=== PATIENT | male | born 1995 | race Two or more races ===

== ENCOUNTER 2017-04-04 09:32 | Emergency (ER) | payer SELFPAY ==
--- NOTE | 2017-04-04 11:22 | UC ---
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 Patient speaks english and a wood stock blank handler was utilized. It was a very difficult history. Patient states the pain is constant however gets worse at times. At it's worst it is an 8/10 and travels to his back and neck. Currently it is about a 5. It is worse when pushing on his sternum. Points to mid sternal chest pain. Admits to having an episode of trouble breathing yesterday that improved. Admits to sometimes having chest pain worsen with exertion. Patient admits to fever/chills and having "goosebumps" 3 days ago. States he also had a rash about 4 days ago that he took Benedryl for and it had improved. He states he still has a rash somewhat but it is much better. Rash was on chest and back, no where else. Patient also admits to nasal congestion and runny nose, cough and sore throat only when he coughed. States these symptoms have all improved and he no longer has them. Today he is just complaining of the chest pain and feeling fatigued, and experiencing loss of appetite. He does eat and drink however does not have the desire. Denies burning sensation, abdominal pain and vomiting. Patient denies cigarette use, and PMHx. Admits to occasional use of alcohol, beer here and there. Denies family history. Has not been immunized. - History of Current Complaint Chief Complaint: UCChestPain Stated Complaint: COUGHING, CHEST CONGESTION Time Seen by Provider: 04/04/17 10:17 Hx Obtained From: Patient, Family/Lockstitch Hemmer, Heel Breaster - english Onset/Duration: Sudden Onset, Lasting Days, Still Present Timing: Constant - Allergies/Home Medications Allergies/Adverse Reactions: Allergies Allergy/AdvReac Type Severity Reaction Status Date / Time No Known Allergies Allergy Verified 06/01/16 09:52 PMH/Surg Hx/FS Hx/Imm Hx - Surgical History Surgical History: None - Family History Known Family History: Positive: None - Pt denies any diabetes, strokes, or glaucoma in his family - Social History Alcohol Use: Weekly Alcohol Amount: 3-4x week , beer Substance Use Type: None Smoking Status (MU): Current Some Day Smoker Type: Cigarettes Physical Exam Vital Signs: Initial Vital Signs Pulse 96 04/04/17 09:48 Resp 16 05/31/17 09:48 Pulse Ox 97 04/04/17 09:48 UC Diagnostic Evaluation - Laboratory O2 Sat by Pulse Oximetry: 97 - Radiology Xray Interpretation: Positive (See Comments) - LEFT LOWER LUNG CONSOLIDATION. RECOMMEND FOLLOW-UP UNTIL RESOLUTION TO EXCLUDE UNDERLYING Radiology Interpretation Completed By: Radiologist - EKG Cardiac Rate: NL Cardiac Rhythm: Sinus: Normal Ectopy: None ST Segment: Non-Specific - ST changes, <1mm elevation in lateral leads, LVH
--- NOTE | 2017-04-04 11:50 | RAD ---
HISTORY: Chest pain COMPARISONS: None VIEWS: 2: Frontal dual-energy and lateral views of the chest. FINDINGS: CARDIOMEDIASTINAL SILHOUETTE: The cardiomediastinal silhouette is normal. BRAN: The bran are normal. PLEURA: The costophrenic angles are sharp. No pleural abnormalities are noted. LUNG PARENCHYMA: There is confluent alveolar opacification of the left lower lung. ABDOMEN: The upper abdomen is clear. There is no subphrenic gas. BONES AND SOFT TISSUES: No bone or soft tissue abnormalities are noted. OTHER: None. IMPRESSION: LEFT LOWER LUNG CONSOLIDATION. RECOMMEND FOLLOW-UP UNTIL RESOLUTION TO EXCLUDE UNDERLYING PULMONARY PARENCHYMAL PATHOLOGY.
[2017-04-04] MEDS ORDERED: Ibuprofen TAB* 600 MG PO ONE (11:51)
[2017-04-04 12:15] VITALS: BP 112/68
--- NOTE | 2017-04-04 12:21 | UC ---
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 Patient speaks italian and a chairman and ceo was utilized. It was a very difficult history. Patient states the pain is constant however gets worse at times. At it's worst it is an 8/10 and travels to his back and neck. Currently it is about a 5. It is worse when pushing on his sternum. Points to mid sternal chest pain, unable to admit to if pain is worse/better with position. Admits to having an episode of trouble breathing yesterday that improved. Admits to sometimes having chest pain worsen with exertion. Patient admits to fever/ chills and having "goosebumps" 3 days ago. States he also had a rash about 4 days ago that he took Benedryl for and it had improved. He states he still has a rash somewhat but it is much better. Rash was on chest and back, no where else. Patient also admits to nasal congestion and runny nose, cough and sore throat only when he coughed. Stated "the flu". States these symptoms have all improved and he no longer has them. Today he is just complaining of the chest pain and feeling fatigued, and experiencing loss of appetite. He does eat and drink however does not have the desire. Denies burning sensation, abdominal pain and vomiting. Patient denies cigarette use, and PMHx. Admits to occasional use of alcohol, beer here and there. Denies family history. Has not been immunized. 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 - History of Current Complaint Chief Complaint: UCChestPain Stated Complaint: COUGHING, CHEST CONGESTION Time Seen by Provider: 04/04/17 10:17 Hx Obtained From: Patient, Family/Night Coordinator, Legal Cashier Onset/Duration: Sudden Onset, Lasting Days - 4, Still Present, Worse Since Initial Severity: Moderate Current Severity: Mild Pain Intensity: 5 Chest Pain Location: Mid Sternal - radiates to neck and back Character: Dull/Aching - unable to really describe, Sharp/Stabbing Aggravating: Exertion, Nothing - unable to describe Alleviating: Rest, OTC Meds - red pills he does not know the name of that made pain feel somewhat better, Spontaneous Resolution Associated Signs & Symptoms: Positive: Chest Pain, SOB - "trouble breathing" yesterday that improved, Fever, Cough - has improved, Back Pain. Negative: Anxiety, Recent Stress, Numbness, Tingling, Weakness, Dizziness, Swelling, Hemoptysis, Abdominal Pain - Risk Factors Pulmonary Embolism Risk Factors: Negative Cardiac Risk Factors: Negative Atrial Fibrillation: Negative TAD Risk Factors: Negative - Allergy/Home Medications Allergies/Adverse Reactions: Allergies Allergy/AdvReac Type Severity Reaction Status Date / Time No Known Allergies Allergy Verified 06/01/16 09:52 PMH/Surg Hx/FS Hx/Imm Hx - Additional Past Medical History Additional PMH: denies all medical history, none. - Surgical History Surgical History: None - Family History Known Family History: Positive: None - Pt denies all - Social History Alcohol Use: Weekly Alcohol Amount: 3-4x week , beer Substance Use Type: None Smoking Status (MU): Former Smoker Type: Cigarettes - Immunization History Vaccination Up to Date: No Immunizations Comment: has not been immunized Review of Systems Constitutional: Fever, Chills, Fatigue Eyes: Negative ENT: Sore Throat, Nasal Discharge Respiratory: Shortness Of Breath, Cough Cardiovascular: Chest Pain Gastrointestinal: Negative, Other - loss of appetite Genitourinary: Negative Motor: Negative Neurovascular: Negative Musculoskeletal: Negative Neurological: Negative All Other Systems Reviewed And Are Negative: Yes Physical Exam Triage Information Reviewed: Yes Appearance: Well-Appearing, No Pain Distress, Well-Nourished Vital Signs: Initial Vital Signs Pulse 96 04/04/17 09:48 Resp 20 04/04/17 09:48 Pulse Ox 97 04/04/17 09:48 BP: 112/68 Temp: 99.7F Vital Signs Reviewed: Yes Eyes: Positive: Conjunctiva Clear - without signs of conjunctivities ENT: Positive: Normal ENT inspection, Hearing grossly normal, Pharyngeal erythema, TMs normal, Tonsillar swelling - minimal b/l, Other: - no koplick spots noted. Negative: Nasal congestion, Nasal drainage, Tonsillar exudate, Trismus, Muffled/hoarse voice Dental: Negative: Cervical Lymphadenopathy Neck: Positive: Supple, Nontender, No Lymphadenopathy Respiratory: Positive: Chest non-tender - ribs non-tender, Lungs clear, Normal breath sounds, No respiratory distress, No accessory muscle use. Negative: Crackles, Rhonchi, Stridor, Wheezing, Expiration, Inspiration, Plerual rub Cardiovascular: Positive: RRR, No Murmur - no audible murmur or pericardial friction rub noted, Brisk Capillary Refill, Tachycardia, Other: - reproducible chest pain. chest pain did not worsen/better with positional change, patient was unable to describe. Abdomen Description: Positive: Nontender, No Organomegaly, Soft. Negative: CVA Tenderness (R), CVA Tenderness (L), Distended, Guarding Bowel Sounds: Positive: Present Musculoskeletal: Positive: Strength Intact, ROM Intact, No Edema Neurological: Positive: Alert Skin Exam: Normal Skin: Positive: Other - no current rash noted, chest and back discoloration but on obvious rash at this time Diagnostics - EKG Cardiac Rate: NL Cardiac Rhythm: Sinus: Normal ST Segment: Non-Specific - ST changes, <1mm in anterolateral leads, mainly lateral leads, LVH - Assessment/Plan Course Of Treatment: after obtianing EKG and Chest x-ray it was decided patient needed a further evaluation at ED to rule out cardiopulmonary pathology such as pericarditis, rheumatic fever, DC, pneumonia, TB, measles etc due to complicated and difficult history. Given 600mg of ibuprofren while in office. EKG and Chest x-ray positive. Patient's pain had decreased prior to transfer. - Differential Diagnoses - Chest Pain Differential Diagnosis/HQI/PQRI: Acute DC, Angina, Chest Wall, Lower Respiratory Infection, Pulmonary Embolism, Other: - Differential Diagnoses - Hypertension Differential Diagnosis/HQI PQRI: AAA - Differential Diagnoses - Palpitations Differential Diagnosis/HQI/PQRI: Cardiomyopathy, Myocarditis, Pericarditis, Other - measels, rheumatic fever - Clinical Impression Provider Diagnoses: chest pain - Physician Notifications Discussed Patient Care With: Mariella FELIX Time Discussed With Above Provider: 12:10 Instructed by Provider To: Transfer - to ED Discharge - Discharge Plan Condition: Stable Disposition: TRANS HIGHER LVL OF CARE FAC Discharge Disposition Comment: transferred to [facility] [place] [facility] Referrals: No Primary Care Phys,NOPCP [Primary Care Provider] -
== END 2017-04-04 12:40 | disposition short-term general hospital (02) ==
LOC: UCEAST 09:32
DX: R07.89 Other chest pain (principal); R06.02 Shortness of breath; R21 Rash and other nonspecific skin eruption; R09.81 Nasal congestion; R05 Cough; J02.9 Acute pharyngitis, unspecified; Z87.891 Personal history of nicotine dependence
CPT/HCPCS: 71020; 93005; 99211; 99213; A9270-GY; G0463

== ENCOUNTER 2017-04-04 12:42 | Inpatient (IN) | payer SELFPAY ==
[2017-04-04 13:13] LABS: Hematocrit 43 % (42-52); Hemoglobin 14.4 g/dl (14.0-18.0); Mean Corpuscular HGB Conc 34 g/dl (31-36); Mean Corpuscular Hemoglobin 29 pg (27-31); Mean Corpuscular Volume 87 fL (80-94); Mean Platelet Volume 10 um3 (7.4-10.4); Red Blood Count 4.93 10^6/ul (4.0-5.4); Red Cell Distribution Width 13 % (10.5-15); White Blood Count 11.8 10^3/ul (3.5-10.8)
[2017-04-04] MEDS ORDERED: Aspirin Low Dose CHEW TAB* 81 MG PO ONE (13:16)
[2017-04-04 13:23] LABS: Albumin 3.8 g/dL (3.2-5.2); BUN/Creatinine Ratio 19.2 (8-20); C Reactive Protein 199.73 mg/L (< 5.00); Calcium 9.1 mg/dL (8.6-10.3); EGFR African American 172.8 (>60); EGFR Non-African American 134.4 (>60); Globulin 3.8 g/dL (2-4); Total Protein 7.6 g/dL (6.4-8.9)
[2017-04-04 13:32] LABS: Troponin I 0.21 ng/mL (<0.04)
--- NOTE | 2017-04-04 13:54 | RAD ---
HISTORY: Chest pain COMPARISONS: April 04, 2017 at 11:24 AM VIEWS: 2: Frontal dual-energy and lateral views of the chest. FINDINGS: CARDIOMEDIASTINAL SILHOUETTE: The cardiomediastinal silhouette is normal. BRAN: The bran are normal. PLEURA: The costophrenic angles are sharp. No pleural abnormalities are noted. LUNG PARENCHYMA: Again noted is confluent alveolar opacification of left lower lung field. This is stable from the previous examination ABDOMEN: The upper abdomen is clear. There is no subphrenic gas. BONES AND SOFT TISSUES: No bone or soft tissue abnormalities are noted. OTHER: None. IMPRESSION: STABLE LEFT LOWER LUNG CONSOLIDATION. AGAIN RECOMMEND FOLLOW-UP UNTIL RESOLUTION TO EXCLUDE UNDERLYING PULMONARY PARENCHYMAL PATHOLOGY
--- NOTE | 2017-04-04 16:43 | ECHO ---
Patient: RIO GONZALEZ [facility] Rec#: [id number] : 1995 Date: 04/04/2017 Age: 21y Height: 162.56 cm / 64.0 in Weight: 77.11 kg / 170.0 lbs Sex: M BSA: 1.83 Room#: 446 Admit Date#: 04/04/2017 Type: Inpatient Referring: Diana Garay DO Reading: Rachel Silva MD Senior Electrical Project Manager: Chinyere Neumann RD,RDMS Transthoracic Echocardiogram Indication: CP BP: 96/45 HR: 77 Rhythm: NSR Findings History: Smoker Technical Comments: The study quality is good. Completed 1620 Left Ventricle: The left ventricular chamber size is normal. There is no left ventricular hypertrophy. Left ventricular systolic function is at the lower limits of normal. The estimated ejection fraction is 45-50%. Normal left ventricular diastolic filling is observed. Left Atrium: The left atrial chamber size is normal. Right Ventricle: The right ventricular chamber size and systolic function are within normal limits. Right Atrium: The right atrial cavity size is normal. Aortic Valve: The aortic valve is trileaflet. There is a trace of aortic regurgitation. There is no evidence of aortic stenosis. Mitral Valve: The mitral valve leaflets appear normal. There is a trace of mitral regurgitation. There is no evidence of mitral stenosis. Tricuspid Valve: The tricuspid valve leaflets are normal. There is trace tricuspid regurgitation. Pulmonic Valve: There is a trace pulmonic regurgitation. Pericardium: There is no significant pericardial effusion. Aorta: The aortic root appears normal. There is no dilatation of the aortic arch. Pulmonary Artery: The main pulmonary artery appears normal. Venous: The inferior vena cava appears normal in size. There is an approximate 50% respiratory change in the inferior vena cava dimension. Conclusions The left ventricular chamber size is normal. Left ventricular systolic function is at the lower limits of normal. The estimated ejection fraction is 50%. The right ventricular chamber size and systolic function are within normal limits. There is no significant pericardial effusion. All valves appear structurally normal with normal function. There is a trace of aortic regurgitation. There is a trace of mitral regurgitation. There is trace tricuspid regurgitation. No prior echo to compare. Measurements Name Value Normal Range RVIDd (AP) 2D 2.3 cm (0.9 - 2.6) RVDdMajor (2D) 4.2 cm (2.2 - 4.4) RAd ISD 4CH 4.9 cm (3.4 - 4.9) RA (A4C)W 4.4 cm (2.9 - 4.6) IVSd (2D) 1 cm (0.6 - 1) LVPWd (2D) 1 cm (0.6 - 1) LVIDd (2D) 5.1 cm (3.6 - 5.4) LVIDs (2D) 3.5 cm - LV FS (2D) 32 % (25 - 45) Aortic Annulus 2.4 cm (1.4 - 2.6) Ao root diameter (2D) 3 cm (2.1 - 3.5) Ascending Ao 2.3 cm (2.1 - 3.4) Aortic arch 2.2 cm (1.8 - 3.4) LA dimension (AP) 2D 3.4 cm (2.3 - 3.8) LAd ISD 4CH 5.5 cm (2.9 - 5.3) LA ISD 4CH W 4.4 cm (2.5 - 4.5) Name Value Normal Range LA ESV SP 4CH (A/L) 56.36 ml - LA ESV SP 2CH (A/L) 45.36 ml - LA ESV BP (A/L) 52.91 ml - LA ESV BP (A/L) index 29 ml/m2 - LA ESV SP 4CH (MOD) 52.13 ml - LA ESV SP 2CH (MOD) 42.63 ml - Name Value Normal Range MV E-wave Vmax 0.7 m/sec - MV deceleration time 88.4 msec - MV A-wave Vmax 0.5 m/sec - MV E:A ratio 1.4 ratio - LV septal e' Vmax 0.11 m/sec - LV lateral e' Vmax 0.1 m/sec - LV E:e' septal ratio 6.4 ratio - LV E:e' lateral ratio 7 ratio - Name Value Normal Range AV Vmax 1.1 m/sec - AV VTI 22.4 cm - AV peak gradient 5 mmHg - AV mean gradient 3.1 mmHg - LVOT Vmax 0.8 m/sec - LVOT VTI 14.5 cm - LVOT peak gradient 2.6 mmHg - LVOT mean gradient 1.3 mmHg - SEE Vmax 1.1 m/sec - Name Value Normal Range RAP 8 mmHg - IVC diameter 1.3 cm - Name Value Normal Range PV Vmax 0.8 m/sec - PV peak gradient 2.6 mmHg -
[2017-04-04] MEDS ORDERED: Levofloxacin 750 MG IVPREMIX(* 750 MG/150 ML BAG IVPB ONE (17:53)
--- NOTE | 2017-04-04 19:39 | RAD ---
INDICATION: Left sided infiltrate COMPARISON: Chest x-ray April 04, 2017 TECHNIQUE: A noncontrast examination was ordered. Source images were obtained from the thoracic inlet to the hemidiaphragms. Coronal and sagittal reconstructed images were acquired. The visualized neck to include the thyroid appear normal. Chest wall: There are no acute abnormalities of the bony thorax or chest wall. There is no supraclavicular, infraclavicular, or axillary lymphadenopathy. Lungs : There is consolidative change in the lingular segment. There is also a small amount of consolidative change in the superior segment of the left lower lobe and in the left lung base. [place] dependent atelectasis present in the right lung base There are no endobronchial lesions. Cardiomediastinal structures: The heart is normal in size. There is no pericardial effusion. There is no evidence of aortic aneurysm or dissection. The pulmonary vessels appear normal. Evaluation for adenopathy is limited due to lack of intravenous contrast. There is left hilar, and aorta pulmonary window, and prevascular space adenopathy. This may be reactive but represents a nonspecific finding. Individual lymph nodes measure up to 2.5 cm The esophagus appears normal. Pleura : There are no pleural-based masses or effusions. Other: There may be splenomegaly. Only a portion of the spleen is imaged. IMPRESSION: NONCONTRAST IMAGING DEMONSTRATES LEFT-SIDED INFILTRATES WITH MEDIASTINAL LYMPHADENOPATHY. POSSIBLE SPLENOMEGALY. CONSIDER BOTH INFLAMMATORY AND NEOPLASTIC ETIOLOGIES.
--- NOTE | 2017-04-04 21:37 | HP ---
HISTORY AND PHYSICAL: DATE OF ADMISSION: 04/04/17 PRIMARY CARE PROVIDER: None. CHIEF COMPLAINT: Chest pain. HISTORY OF PRESENT ILLNESS: Mr. Linus Bhat is a 21-year-old male, who is only Vietnamese speaking, who presents to the emergency room with complaints of chest pain. The patient, via the prototype model maker phone, states that approximately 5 days ago, he began to have fever and chills. He denied any shortness of breath. No nausea or vomiting. No cold-like symptoms. No runny nose. He states 3 days ago, he began to have what he described as a strong pain in the center of his chest. The patient states the pain at this point is completely resolved. He states that the pain will come at random times. 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 The patient states that his appetite has been poor over the few days. PAST MEDICAL HISTORY: None. PAST SURGICAL HISTORY: None. MEDICATIONS: None. ALLERGIES: None. FAMILY HISTORY: Mom is living, she is 42, is healthy. Dad is living, he is 39 and healthy. SOCIAL HISTORY: The patient smokes occasionally. He does not drink alcohol on a daily basis. He does not use any recreational drugs including cocaine. 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 He has 1 child. He is unable to choose the healthcare proxy at this time. REVIEW OF SYSTEMS: The patient admits to fevers, chills, and anorexia. He admits to chest pain as above. No lower extremity edema. No cough. No shortness of breath. No nausea, vomiting, abdominal pain, constipation, or diarrhea. No dysuria. No focal weakness. No sudden change in vision. No dysphagia. No joint pain or muscle pains out of ordinary. No rashes. PHYSICAL EXAMINATION GENERAL: The patient is a well-developed, young male, lying flat on the bed, in no acute distress. VITAL SIGNS: Blood pressure 100/43, pulse 82, respirations 18, temp 99.7, O2 sat 100% on room air. HEENT: Pupils are equal, they are round, they react to light. Extraocular muscles are intact. Oropharynx is clear. Oral mucosa is moist. There is no submandibular, cervical, or subclavicular adenopathy. Thyroid is not enlarged. No thyroid nodules noted. PULMONARY: Lungs are clear to auscultation bilaterally. CARDIAC: Normal S1 and S2. Regular rate and rhythm. I do not appreciate any rubs. ABDOMEN: Bowel sounds are present. Abdomen is soft, nontender, and nondistended. MUSCULOSKELETAL: There is no cyanosis or clubbing in the digits. There is full active range of motion of all 4 extremities. NEURO: Cranial nerves II through XII are grossly intact. Sensation is intact to light touch throughout. Strength is 5/5 and symmetric in both upper and lower extremities bilaterally. PSYCH: The patient is alert. He is oriented to x3. Affect appears appropriate. SKIN: Warm and dry. There are no rashes. DIAGNOSTIC STUDIES/LAB DATA: WBC 11.8, hemoglobin 11.4, hematocrit , and platelets 275. Sodium 136, potassium 4.0, chloride 102, CO2 25, BUN 14, creatinine 0.73, glucose 99, lactic acid 0.5, calcium 9.1. Bilirubin 1.0, AST 31, ALT 46, alk phos 104. Troponin 0.21. CRP 199.73. BNP 434. Albumin 3.8. Chest x-ray: Stable left lower lobe consolidation. EKG reveals ST elevation in the lateral leads and questionably in the inferior leads. ASSESSMENT AND PLAN: Mr. Linus Bhat is a 21-year-old male, who has had 5 days of fever in addition to 3 days of centrally located chest pain, not any worse with any certain position. 1. Chest pain. The most likely etiology appears to be mild pericarditis. The patient does have an elevated troponin of 0.21. We will get a followup troponin now and trend this until it peaks. The patient will get a transthoracic echocardiogram. Depending on the results of transthoracic echo, Cardiology consultation will be requested. The patient will be continued on aspirin 81 mg p.o. daily and low-dose beta july if his blood pressure will tolerate. 2. DVT prophylaxis: According to the Adult Thrombosis Prophylaxis Risk Factor Assessment Guide, the patient has a total risk factor score of 0, making him low risk. Ambulation will be utilized as DVT prophylaxis. Code status is full. TIME SPENT: Fifty-five minutes was spent admitting this patient. [id number] #: [id number] [facility]
[2017-04-04] MEDS: Metoprolol Tartrate TAB* 25 MG PO SCH (22:00)
[2017-04-05] MEDS ORDERED: Morphine INJ* 2 MG/ML 1 ML SYRINGE IV PRN (00:08)
[2017-04-05] MEDS: Acetaminophen TAB* 325 MG PO PRN (00:20)
[2017-04-05] MEDS ORDERED: Heparin VIAL(*) 5000 UNITS/ML VIAL (FIVE THOUSAND) IV PRN (00:44)
[2017-04-05] MEDS ORDERED: Heparin DRIP 25,000 UNITS(*) 25,000 UNITS/500 ML BAG IVPB SCH (00:45)
[2017-04-05] MEDS ORDERED: Ketorolac INJ* 15 MG/ML 1 ML VIAL IV PRN (01:01)
--- NOTE | 2017-04-05 01:19 | PN ---
Progress Note - Progress Note Note: Nursing reported return of chest pain. Repeat ECG & troponin requested. ECG shows resolution of previous ST elevation. Troponin is increased from 0.6 to 6.0. Patient is Nepalese-only speaking, translator interpreter phone is not functioning, and so online translation service via iPad was utilized. 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 ECHO today showed EF lower limits of normal at 45-50%, but no wall motion or valvular abnormality noted. His pain this evening was moderate to severe pressure/sharp substernal radiating through to his back with sweating and mild light-headedness, but no SOB, N/V, or palpitations. General: male lying in bed in no distress. Lungs: CTAB, normal effort. CV: RRR, normal S1S2, no friction rub appreciated. Abdomen: SNTND. Extremities: W&D. 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
[2017-04-05] MEDS ORDERED: Iohexol 350* (CONTRAST) 500 ML MDV IV ONE (01:41)
[2017-04-05] MEDS: Ketorolac INJ* 15 MG/ML 1 ML VIAL IV SCH ×4 (02:45→20:30)
[2017-04-05] MEDS ORDERED: NS 0.9% 1000 ML* 1,000 ML IV SCH ×2 (05:09→10:30)
[2017-04-05] MEDS ORDERED: NS 0.9% 1000 ML* 2,000 ML IV ONE (05:30)
[2017-04-05 05:37] LABS: Hematocrit 40 % (42-52); Hemoglobin 13.7 g/dl (14.0-18.0); Mean Corpuscular HGB Conc 34 g/dl (31-36); Mean Corpuscular Hemoglobin 30 pg (27-31); Mean Corpuscular Volume 87 fL (80-94); Mean Platelet Volume 9 um3 (7.4-10.4); Red Blood Count 4.62 10^6/ul (4.0-5.4); Red Cell Distribution Width 13 % (10.5-15); White Blood Count 8.9 10^3/ul (3.5-10.8)
[2017-04-05 05:52] LABS: EGFR African American 155.5 (>60); EGFR Non-African American 120.9 (>60)
[2017-04-05 05:56] LABS: Troponin I 3.13 ng/mL (<0.04)
--- NOTE | 2017-04-05 07:44 | RAD ---
HISTORY: Chest pain radiating to back COMPARISONS: April 04, 2017 TECHNIQUE: Multiple contiguous axial CT scans were obtained of the chest, abdomen, and pelvis after the administration of intravenous contrast. Coronal and sagittal multiplanar reformations are submitted for review.. Oral contrast was not administered. 3-D volumetric reconstructions of the aorta are also submitted for review FINDINGS: CHEST NECK AND THYROID: The lower neck and thyroid are unremarkable. CHEST WALL: There is no lower cervical, axillary, or supraclavicular lymphadenopathy by size criteria. HEART AND PERICARDIUM: The heart is unremarkable. AORTA AND PULMONARY VASCULATURE: There is no intimal flap to suggest aortic dissection. There is no aneurysmal dilatation. There is no pulmonary arterial filling defects to suggest pulmonary embolus. MEDIASTINUM: There are enlarged prevascular lymph nodes measuring up to 1.3 cm in short axis. There are enlarged subcarinal lymph nodes measuring up to 1.3 cm in short axis. BRAN: There are bilateral, left greater than right hilar lymph nodes, with enlarged left hilar lymph nodes measuring up to 1.5 cm in short axis. AIRWAY AND ESOPHAGUS: The airway is unremarkable, without endobronchial filling defect. The esophagus is grossly normal. LUNG PARENCHYMA: There is multifocal patchy consolidation of the left mid and lower lung PLEURA: No pleural abnormalities are noted. BONES AND SOFT TISSUES: No bone or soft tissue abnormalities are noted. ABDOMEN/PELVIS: LIVER: The liver is at the upper limits of normal in size. BILE DUCTS: There is no intrahepatic or extrahepatic biliary dilatation. GALLBLADDER: The gallbladder is normal, without pericholecystic inflammatory change. PANCREAS: The pancreas is normal, without mass or ductal dilatation. SPLEEN: The spleen is at the upper limits of normal in size UPPER GI TRACT: Evaluation of the gastrointestinal tract is limited by incomplete gastric distention. The upper GI tract is unremarkable. SMALL BOWEL \T\ MESENTERY: The small bowel is normal in contour, course, and caliber. There is no obstruction or dilatation. COLON: The colon is normal in contour, course, caliber. There is no pericolonic inflammatory change. ADRENALS: Normal bilaterally. KIDNEYS: The kidneys are normal in shape, size, contour, and axis. There is no hydronephrosis or nephrolithiasis. BLADDER: The bladder is smooth in contour. PELVIC ORGANS: The prostate gland is normal. The seminal vesicles are symmetric. AORTA: There is no intimal flap to suggest dissection. There is no aneurysmal dilatation. IVC: Unremarkable LYMPH NODES: There is no lymphadenopathy by size criteria. ABDOMINAL WALL: There is no evidence for abdominal wall hernia. BONES: Unremarkable OTHER: None IMPRESSION: 1. NO AORTIC INTIMAL FLAP OR ANEURYSMAL DILATATION. 2. MULTIFOCAL LEFT LUNG CONSOLIDATION WITH MEDIASTINAL AND HILAR LYMPHADENOPATHY. 3. BORDERLINE HEPATOSPLENOMEGALY
[2017-04-05] MEDS: Metoprolol Tartrate TAB* 25 MG PO SCH ×2 (08:13→20:30)
[2017-04-05] MEDS: Aspirin Low Dose CHEW TAB* 81 MG PO SCH (08:13)
[2017-04-05 10:25] LABS: Procalcitonin 0.3 ng/mL (<0.6)
--- NOTE | 2017-04-05 10:27 | PN ---
Subjective Date of Service: 04/05/17 Interval History: Overnight events noted. Patient seen this morning, complex case manager phone utilized. No further chest pain since episode overnight. Denies fever or chills. Says he had subjective fever and chills prior to admission along with a blistering rash that he reports on his shoulders and arms which has since resolved with Benadryl. 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 Family History: Unchanged from Admission Social History: Unchanged from Admission Past Medical History: Unchanged from Admission Objective Active Medications: Acetaminophen (Tylenol Tab*) 650 mg PO Q6H PRN Aspirin (Aspirin Low Dose Tab*) 81 mg PO DAILY NIESHA Heparin Sodium (Porcine) (Heparin Vial(*)) 0 units IV .BOLUSES PRN Heparin Sodium/Dextrose (Heparin Drip 25,000 Units(*)) 25,000 units in 500 mls @ 0 mls/hr IVPB .(INITIAL RATE) NIESHA; Per Protocol Ketorolac Tromethamine (Toradol Inj*) 15 mg IV Q6H NIESHA Metoprolol Tartrate (Lopressor Tab*) 12.5 mg PO Q12HR NIESHA Morphine Sulfate (Morphine Inj (Syringe)*) 2 mg IV Q4H PRN Vital Signs 04/04/17 04/04/17 04/04/17 14:27 14:31 14:39 Temperature 99.7 F Pulse Rate 81 87 82 Respiratory 12 23 18 Rate Blood Pressure 96/45 100/43 190/54 (mmHg) O2 Sat by Pulse 99 100 Oximetry 04/05/17 04/05/17 08:48 09:00 Temperature Pulse Rate 101 Respiratory 16 Rate Blood Pressure 103/68 (mmHg) O2 Sat by Pulse 97 96 Oximetry Oxygen Devices in Use Now: Nasal Cannula - 2L Appearance: Young, man, laying in bed in NAD Eyes: No Scleral Icterus Ears/Nose/Mouth/Throat: Mucous Membranes Moist Neck: NL Appearance and Movements; NL JVP Respiratory: Symmetrical Chest Expansion and Respiratory Effort, Clear to Auscultation Cardiovascular: NL Sounds; No Murmurs; No JVD, RRR, - - do not appreciate rub Abdominal: NL Sounds; No Tenderness; No Distention Lymphatic: No Cervical Adenopathy Extremities: No Edema Skin: No Rash or Ulcers Neurological: Alert and Oriented x 3 Result Diagrams: 04/05/17 05:18 04/05/17 05:18 Microbiology and Other Data: Microbiology 04/05/17 02:25 Nasal Screen MRSA (PCR)(MARCIE) - Final Nasal Mrsa Negative Assess/Plan/Problems-Billing Assessment: 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 Recurred overnight, now on standing NSAIDs. Troponins peaked at 6.08. Cardiology consulted. For now continue heparin, ASA, metoprolol. (2) Fever Current Visit: Yes Comment: rash. Fever yesterday in hospital to 101, CRP elevated at 199. 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 CXR and CT scan does show pulmonary infiltrate. Will check procalcitonin. Will ask ID to evaluate. Will check LDH, BERNARDO, ANCA, AFB sputum x3, will move patient to negative pressure room. (3) DVT prophylaxis Current Visit: Yes Comment: Heparin
[2017-04-05] MEDS ORDERED: Enoxaparin(*) 80 MG/0.8 ML SYR SUBCUT SCH (12:00)
--- NOTE | 2017-04-05 12:23 | ED ---
Franko Childress Billy, scribed for Jet Valencia MD on 04/04/17 at 1312 . Complex/Multi-Sys Presentation - HPI Summary HPI Summary: This patient is a 21 year old male presenting to [facility] with complaints of intermittent sternal chest pain which began 3 days ago. The patient describes and gestures a pressure-like pain. He reports that he notices the pain most when working and after food. This is the first time the patient has experienced these symptoms. The patient reports a decreased appetite, subjective fever for 4 -5 days, and an unproductive cough. He denies nausea or vomiting. Denies shortness of breath. Occasional ETOH and tobacco use. - History Of Current Complaint Chief Complaint: EDChestPainROMI Time Seen by Provider: 04/04/17 12:56 Hx Obtained From: Patient Onset/Duration: Gradual Onset, Lasting Days, Still Present Timing: Intermittent, Lasting: Severity Currently: Moderate Severity Initially: Moderate Character: Pressure Aggravating Factor(s): Noticed most during work and after food Associated Signs And Symptoms: Positive: Chest Pain, Decreased Oral Intake. Negative: SOB, Nausea, Vomiting - Allergies/Home Medications Allergies/Adverse Reactions: Allergies Allergy/AdvReac Type Severity Reaction Status Date / Time No Known Allergies Allergy Verified 06/01/16 09:52 PMH/Surg Hx/FS Hx/Imm Hx Sensory History: Denies: Hx Legally Blind EENT History: Denies: Hx Deafness Infectious Disease History: No Infectious Disease History: Denies: Traveled Outside the [place] in Last 30 Days - Family History Known Family History: Positive: Diabetes Negative: Cardiac Disease - Social History Alcohol Use: Weekly Alcohol Amount: 3-4x week , beer Substance Use Type: Reports: None Hx Tobacco Use: Yes Smoking Status (MU): Current Some Day Smoker Type: Cigarettes Review of Systems Positive: Chest Pain Negative: Shortness Of Breath Gastrointestinal: Other - decreased appetite Negative: Vomiting, Nausea All Other Systems Reviewed And Are Negative: Yes Physical Exam - Summary Physical Exam Summary: VITAL SIGNS: Reviewed. GENERAL: Patient is a well-developed and nourished male who is lying comfortable in the stretcher. Patient is not in any acute respiratory distress. HEAD AND FACE: No signs of trauma. No ecchymosis, hematomas or skull depressions. No sinus tenderness. EYES: PERRLA, EOMI x 2, No injected conjunctiva, no nystagmus. EARS: Hearing grossly intact. Ear canals and tympanic membranes are within normal limits. MOUTH: Oropharynx within normal limits. NECK: Supple, trachea is midline, no adenopathy, no JVD, no carotid bruit, no c- spine tenderness, neck with full ROM. CHEST: Symmetric, no tenderness at palpation LUNGS: Clear to auscultation bilaterally. No wheezing or crackles. CVS: Regular rate and rhythm, S1 and S2 present, no murmurs or gallops appreciated. ABDOMEN: Soft, non-tender. No signs of distention. No rebound no guarding, and no masses palpated. Bowel sounds are normal. EXTREMITIES: FROM in all major joints, no edema, no cyanosis or clubbing. NEURO: Alert and oriented x 3. No acute neurological deficits. Speech is normal and follows commands. SKIN: Dry and warm Triage Information Reviewed: Yes Vital Signs On Initial Exam: Initial Vitals Temp Pulse Resp BP Pulse Ox 99.7 F 100 12 101/63 99 04/04/17 12:59 04/04/17 12:59 04/04/17 12:59 04/04/17 12:59 04/04/17 12:59 Vital Signs Reviewed: Yes Diagnostics - Vital Signs Vital Signs Temp Pulse Resp BP Pulse Ox 04/04/17 13:04 99.7 F 98 12 101/63 99 04/04/17 12:59 99.7 F 100 12 101/63 99 - Laboratory Lab Results: Lab Results 04/04/17 04/04/17 04/04/17 Range/Units 12:00 12:00 12:00 WBC 11.8 H (3.5-10.8) 10^3/ul RBC 4.93 (4.0-5.4) 10^6/ul Hgb 14.4 (14.0-18.0) g/dl Hct 43 (42-52) % MCV 87 (80-94) fL MCH 29 (27-31) pg MCHC 34 (31-36) g/dl RDW 13 (10.5-15) % Plt Count 275 (150-450) 10^3/ul MPV 10 (7.4-10.4) um3 Neut % (Auto) 83.5 H (38-83) % Lymph % (Auto) 7.1 L (25-47) % Graves % (Auto) 7.5 (1-9) % Eos % (Auto) 1.2 (0-6) % Baso % (Auto) 0.7 (0-2) % Absolute Neuts (auto) 9.8 H (1.5-7.7) 10^3/ul Absolute Lymphs (auto) 0.8 L (1.0-4.8) 10^3/ul Absolute Monos (auto) 0.9 H (0-0.8) 10^3/ul Absolute Eos (auto) 0.1 (0-0.6) 10^3/ul Absolute Basos (auto) 0.1 (0-0.2) 10^3/ul Absolute Nucleated RBC 0 10^3/ul Nucleated RBC % 0 Sodium 136 (133-145) mmol/L Potassium 4.0 (3.5-5.0) mmol/L Chloride 102 (101-111) mmol/L Carbon Dioxide 25 (22-32) mmol/L Anion Gap 9 (2-11) mmol/L BUN 14 (6-24) mg/dL Creatinine 0.73 (0.67-1.17) mg/dL Est GFR ( Amer) 172.8 (>60) Est GFR (Non-Af Amer) 134.4 (>60) BUN/Creatinine Ratio 19.2 (8-20) Glucose 99 (70-100) mg/dL Lactic Acid 0.5 (0.5-2.0) mmol/L Calcium 9.1 (8.6-10.3) mg/dL Total Bilirubin 1.00 (0.2-1.0) mg/dL AST 31 (13-39) U/L ALT 46 (7-52) U/L Alkaline Phosphatase 104 (34-104) U/L Troponin I 0.21 H* (<0.04) ng/mL C-Reactive Protein 199.73 H (< 5.00) mg/L B-Natriuretic Peptide ( - 100) pg/mL Total Protein 7.6 (6.4-8.9) g/dL Albumin 3.8 (3.2-5.2) g/dL Globulin 3.8 (2-4) g/dL Albumin/Globulin Ratio 1.0 (1-3) 04/04/17 Range/Units 12:00 WBC (3.5-10.8) 10^3/ul RBC (4.0-5.4) 10^6/ul Hgb (14.0-18.0) g/dl Hct (42-52) % MCV (80-94) fL MCH (27-31) pg MCHC (31-36) g/dl RDW (10.5-15) % Plt Count (150-450) 10^3/ul MPV (7.4-10.4) um3 Neut % (Auto) (38-83) % Lymph % (Auto) (25-47) % Graves % (Auto) (1-9) % Eos % (Auto) (0-6) % Baso % (Auto) (0-2) % Absolute Neuts (auto) (1.5-7.7) 10^3/ul Absolute Lymphs (auto) (1.0-4.8) 10^3/ul Absolute Monos (auto) (0-0.8) 10^3/ul Absolute Eos (auto) (0-0.6) 10^3/ul Absolute Basos (auto) (0-0.2) 10^3/ul Absolute Nucleated RBC 10^3/ul Nucleated RBC % Sodium (133-145) mmol/L Potassium (3.5-5.0) mmol/L Chloride (101-111) mmol/L Carbon Dioxide (22-32) mmol/L Anion Gap (2-11) mmol/L BUN (6-24) mg/dL Creatinine (0.67-1.17) mg/dL Est GFR ( Amer) (>60) Est GFR (Non-Af Amer) (>60) BUN/Creatinine Ratio (8-20) Glucose (70-100) mg/dL Lactic Acid (0.5-2.0) mmol/L Calcium (8.6-10.3) mg/dL Total Bilirubin (0.2-1.0) mg/dL AST (13-39) U/L ALT (7-52) U/L Alkaline Phosphatase (34-104) U/L Troponin I (<0.04) ng/mL C-Reactive Protein (< 5.00) mg/L B-Natriuretic Peptide 434 H ( - 100) pg/mL Total Protein (6.4-8.9) g/dL Albumin (3.2-5.2) g/dL Globulin (2-4) g/dL Albumin/Globulin Ratio (1-3) Result Diagrams: 04/05/17 05:18 04/05/17 05:18 Lab Statement: Any lab studies that have been ordered have been reviewed, and results considered in the medical decision making process. - Radiology CXR Radiology Interpretation Completed By: Radiologist - STABLE LEFT LOWER LUNG CONSOLIDATION. AGAIN RECOMMEND FOLLOW-UP UNTIL RESOLUTION TO EXCLUDE UNDERLYING PULMONARY PARENCHYMAL PATHOLOGY - EKG 1 EKG Interpretation: ST elevation in I II aVL V2-V6 Complex Multi-Symp Course/Dx Assessment/Plan: This patient is a 21 year old male presenting to [facility] with complaints of intermittent sternal chest pain which began 3 days ago. The patient describes and gestures a pressure-like pain. He reports that he notices the pain most when working and after food. This is the first time the patient has experienced these symptoms. The patient reports a decreased appetite, subjective fever for 4-5 days, and an unproductive cough. He denies nausea or vomiting. Denies shortness of breath. Occasional ETOH and tobacco use. Test results show WBC of 11.8, troponin of 0.21, CRP of 199 and BNP of 434. CXR shows a stable left lower lung consolidation, again recommend follow-up until resolution to. exclude underlying pulmonary parenchymal pathology. EKG shows EREN in I II aVL V2-V6. I believe this is consistent with an acute pericarditis. Therefore the patient was given ASA and also Levaquin for the pneumonia. At this point, I consulted the case with Dr. Silva (recording studio set up worker) who came and examined the patient. She agrees with posibility of Pericarditis. I also discussed the case with Dr. Garay who accepted the patient for admission. The patient is hemodynamically stable, A&Ox3.Test results show WBC of 11.8, troponin of 0.21, CRP of 199 and BNP of 434. CXR shows a stable left lower lung consolidation, again recommend follow-up until resolution to exclude underlying pulmonary parenchymal pathology. EKG shows EREN in I II aVL V2-V6. I believe this is consistent with an acute pericarditis. Therefore the patient was given ASA and also Levaquin for the pneumonia. At this point, I consulted the case with Dr. Silva who came and examined the patient. I also discussed the case with Dr. Garay who accepted the patient for admission. The patient is hemodynamically stable, A&Ox3. - Diagnoses Differential Diagnoses/HQI/PQRI: Other - NE, Pericarditis, Pneumonia, Costochondritis, GERD Provider Diagnoses: Acute pericarditis, Pneumonia Discharge - Discharge Plan Condition: Stable Disposition: ADMITTED TO [facility] Consult Consult: Dr. Buckner (shot blaster) at 1317: consult Dr. Silva. Dr. Silva (director of education and training) at 1334: she will see patient in the ED. The documentation as recorded by the Franko guillory Billy accurately reflects the service I personally performed and the decisions made by me, Jet Valencia MD.
[2017-04-05 13:08] LABS: Benzodiazepine Urine Screen None Detected (None Detect)
[2017-04-05] MEDS: Sodium Chloride(INHALANT) 3%* 4 ML NEB.SOLN INH PRN ×2 (14:25→22:48)
--- NOTE | 2017-04-05 21:37 | CONS ---
CONSULTATION REPORT: DATE OF CONSULT: 04/05/17 REQUESTING PHYSICIAN: Dr. Silverman. CONSULTING SERVICE: Infectious Disease. REASON FOR CONSULTATION: Chest pain, elevated troponins, left lung infiltrate in a person from [place] with fever. IMPRESSION: 1. Myocarditis without pericardial involvement by echocardiogram, positive troponin and pleuritic chest pain along with fever. There is a left lung infiltrate as well. He has had occasional cough. In a man from [place], the differential diagnosis includes viral organisms that can cause myocarditis and pneumonia including coxsackievirus, HIV, hepatitis B and C, influenza, and adenovirus as well as multitude of others. Bacterial considerations include infective endocarditis causing embolization, though it is harder to include the lung infiltrate in that equation. Given he is from [place], with the infiltrate and cough and fever, tuberculosis is on the differential diagnosis. 2. Positive troponins, peaked at 6 last night, it is 3 this morning. RECOMMENDATIONS: HIV antibody, serologic testing for CMV, hepatitis B and C, and we will await blood cultures that were sent yesterday. We will continue to hold antibiotics. We will do acid-fast sputum smear x3, induced if need be and while is on airborne precautions. HISTORY OF PRESENT ILLNESS: This is a 21-year-old man from [place]. 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 We did interview with the optical goods worker phone with a lacquer pin press operator. He felt totally well until end of last week, he developed fever with chest pain that was intermittent. Sometimes, he had chills and sweats with the fever. He did not check his temperature to know how high it was. A couple of days before, he had a rash on his back and chest that was like hives with itchy and got better with Benadryl and then that went away, then the fever and chest pain that progressed and then he began to have shortness of breath with exertion and worsening chest pain, which is in the center of chest and radiates to his neck and shoulder and to his back. So, he came to the ER yesterday. His troponin was up to 6 last night, 3 this morning. He had low-grade fever overnight at 38.3. He had a CT of the chest, abdomen, and pelvis that showed multifocal left lung consolidation , mediastinal and hilar lymphadenopathy, and hepatosplenomegaly. This morning, his chest pain has resolved. He has had no fevers except for overnight. No rash or diarrhea today, and no focal signs or symptoms. Otherwise, he does not have a cough now. He has had one for a couple of days last week. Blood and urine cultures were sent and he had a dose of Levaquin in the ER, those are all pending. When he got here, his white blood cell count was 11, it is 8 today. His kidney and liver function type tests are negative. Urine tox screen showed only opiates. PAST MEDICAL HISTORY: None. ALLERGIES: No known drug allergies. MEDICATIONS: 1. Tylenol. 2. Aspirin. 3. Enoxaparin. 4. Ketorolac. 5. Metoprolol. SOCIAL HISTORY: He is from [facility]. He has been in the a few years. 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 Number of other relatives and other [place] workers there, one cousin had a fever last week, but no else has been that he knows of. He has had no TB exposure that he knows of and no history of TB skin test. FAMILY HISTORY: Nobody had tuberculosis that he knew of. Nobody with recurrent infections. PHYSICAL EXAM: Vital Signs: Temperature 36, heart rate 80, respiratory rate 20 , blood pressure 97/55, O2 sat 97% on room air. General: He is awake, not in distress. Neurologic: He is oriented x3. Follows all commands. Cranial nerves II through XII are intact. HEENT: There is no conjunctival hemorrhage. Oropharynx without lesions. Neck: Supple without nuchal rigidity. Lymph Nodes : There is no cervical, supraclavicular, inguinal, axillary, or epitrochlear lymphadenopathy. Heart: Regular rate and rhythm without murmurs, rubs, or gallops. Lungs: Clear to auscultation bilaterally. Abdomen: Soft, nontender , and nondistended. Skin: There are no rashes or splinter hemorrhages. Musculoskeletal: There is no spine tenderness to palpation or joint synovitis. DIAGNOSTIC STUDIES/LAB DATA: White blood cell count 8, hemoglobin 13, and platelets 251. Creatinine is 0.8. Troponins this morning 3.1. Please see impression and recommendations outlined above, which I have discussed with Dr. Silverman and Dr. Buckner. Thank you for asking me to see Mr. Linus Bhat in consultation. [id number]/[facility] #: [id number] [place]AN
[2017-04-06] MEDS: Ketorolac INJ* 15 MG/ML 1 ML VIAL IV SCH ×3 (03:11→14:28)
[2017-04-06] MEDS: Sodium Chloride(INHALANT) 3%* 4 ML NEB.SOLN INH PRN ×2 (05:25→11:52)
[2017-04-06 05:43] LABS: Hematocrit 40 % (42-52); Hemoglobin 13.8 g/dl (14.0-18.0); Mean Corpuscular HGB Conc 34 g/dl (31-36); Mean Corpuscular Hemoglobin 30 pg (27-31); Mean Corpuscular Volume 87 fL (80-94); Mean Platelet Volume 9 um3 (7.4-10.4); Red Blood Count 4.65 10^6/ul (4.0-5.4); Red Cell Distribution Width 13 % (10.5-15); White Blood Count 9.6 10^3/ul (3.5-10.8)
[2017-04-06 05:48] LABS: Add Diff/Slide Review? Slide Review Added; Comments Flag Yes
[2017-04-06 07:51] LABS: Eosinophils % 5 % (0-6); Immature Granulocytes 6 % (0-9); Neutrophil % 71 % (38-83); RBC Morphology Normal (Normal); Reactive Lymph % 2 % (0-6)
[2017-04-06] MEDS: Aspirin Low Dose CHEW TAB* 81 MG PO SCH (08:14)
[2017-04-06] MEDS: Metoprolol Tartrate TAB* 25 MG PO SCH ×2 (08:14→20:41)
--- NOTE | 2017-04-06 11:12 | PN ---
Subjective Date of Service: 04/06/17 Interval History: Patient seen this morning. Communicated via cyraphone. Reports no complaints presently. No chest pain since episode 2 nights ago. Denies any subjective fever , chills, not coughing. No recurrence of rash. Explained plans for additional TB testing and possible cath. Family History: Unchanged from Admission Social History: Unchanged from Admission Past Medical History: Unchanged from Admission Objective Active Medications: Acetaminophen (Tylenol Tab*) 650 mg PO Q6H PRN PRN Reason: FEVER/PAIN Last Admin: 04/05/17 00:20 Dose: 650 mg Aspirin (Aspirin Low Dose Tab*) 81 mg PO DAILY [facility] Last Admin: 04/06/17 08:14 Dose: 81 mg Ketorolac Tromethamine (Toradol Inj*) 15 mg IV Q6H [facility] Last Admin: 04/06/17 08:13 Dose: 15 mg Metoprolol Tartrate (Lopressor Tab*) 12.5 mg PO Q12HR [facility] Last Admin: 04/06/17 08:14 Dose: 12.5 mg Morphine Sulfate (Morphine Inj (Syringe)*) 2 mg IV Q4H PRN PRN Reason: PAIN - MILD Last Admin: 04/05/17 00:21 Dose: 2 mg Sodium Chloride (Sodium Chloride(Inhalant) 3%*) 3 ml INH Q8H PRN PRN Reason: sputum induction Last Admin: 04/06/17 05:25 Dose: 3 ml Vital Signs 04/05/17 04/05/17 04/05/17 12:00 12:24 13:00 Temperature 97.5 F Pulse Rate 81 80 Respiratory 23 17 Rate Blood Pressure 96/55 111/59 (mmHg) O2 Sat by Pulse 97 96 Oximetry 04/05/17 04/05/17 04/05/17 22:50 22:52 22:58 Temperature Pulse Rate 80 86 Respiratory 15 15 Rate Blood Pressure (mmHg) O2 Sat by Pulse 99 98 100 Oximetry 04/06/17 04/06/17 08:00 09:00 Temperature 100.5 F Pulse Rate 86 93 Respiratory 21 20 Rate Blood Pressure 104/64 112/56 (mmHg) O2 Sat by Pulse 94 92 Oximetry Oxygen Devices in Use Now: None Appearance: Young, M, laying in bed in NAD Eyes: No Scleral Icterus Ears/Nose/Mouth/Throat: Mucous Membranes Moist Neck: NL Appearance and Movements; NL JVP Respiratory: Symmetrical Chest Expansion and Respiratory Effort, Clear to Auscultation Cardiovascular: NL Sounds; No Murmurs; No JVD, RRR Abdominal: NL Sounds; No Tenderness; No Distention Lymphatic: No Cervical Adenopathy Extremities: No Edema Skin: No Rash or Ulcers Neurological: Alert and Oriented x 3 Result Diagrams: 04/06/17 05:33 04/05/17 05:18 Additional Lab and Data: Lab Results 04/04/17 04/04/17 04/04/17 Range/Units 12:00 12:00 12:00 WBC 11.8 H (3.5-10.8) 10^3/ul RBC 4.93 (4.0-5.4) 10^6/ul Hgb 14.4 (14.0-18.0) g/dl Hct 43 (42-52) % MCV 87 (80-94) fL MCH 29 (27-31) pg MCHC 34 (31-36) g/dl RDW 13 (10.5-15) % Plt Count 275 (150-450) 10^3/ul MPV 10 (7.4-10.4) um3 Neut % (Auto) 83.5 H (38-83) % Lymph % (Auto) 7.1 L (25-47) % Mcintosh % (Auto) 7.5 (1-9) % Eos % (Auto) 1.2 (0-6) % Baso % (Auto) 0.7 (0-2) % Absolute Neuts (auto) 9.8 H (1.5-7.7) 10^3/ul Absolute Lymphs (auto) 0.8 L (1.0-4.8) 10^3/ul Absolute Monos (auto) 0.9 H (0-0.8) 10^3/ul Absolute Eos (auto) 0.1 (0-0.6) 10^3/ul Absolute Basos (auto) 0.1 (0-0.2) 10^3/ul Absolute Nucleated RBC 0 10^3/ul Nucleated RBC % 0 Sodium 136 (133-145) mmol/L Potassium 4.0 (3.5-5.0) mmol/L Chloride 102 (101-111) mmol/L Carbon Dioxide 25 (22-32) mmol/L Anion Gap 9 (2-11) mmol/L BUN 14 (6-24) mg/dL Creatinine 0.73 (0.67-1.17) mg/dL Est GFR ( Amer) 172.8 (>60) Est GFR (Non-Af Amer) 134.4 (>60) BUN/Creatinine Ratio 19.2 (8-20) Glucose 99 (70-100) mg/dL Lactic Acid 0.5 (0.5-2.0) mmol/L Calcium 9.1 (8.6-10.3) mg/dL Total Bilirubin 1.00 (0.2-1.0) mg/dL AST 31 (13-39) U/L ALT 46 (7-52) U/L Alkaline Phosphatase 104 (34-104) U/L Troponin I 0.21 H* (<0.04) ng/mL C-Reactive Protein 199.73 H (< 5.00) mg/L B-Natriuretic Peptide ( - 100) pg/mL Total Protein 7.6 (6.4-8.9) g/dL Albumin 3.8 (3.2-5.2) g/dL Globulin 3.8 (2-4) g/dL Albumin/Globulin Ratio 1.0 (1-3) / Range/Units 12:00 WBC (3.5-10.8) 10^3/ul RBC (4.0-5.4) 10^6/ul Hgb (14.0-18.0) g/dl Hct (42-52) % MCV (80-94) fL MCH (27-31) pg MCHC (31-36) g/dl RDW (10.5-15) % Plt Count (150-450) 10^3/ul MPV (7.4-10.4) um3 Neut % (Auto) (38-83) % Lymph % (Auto) (25-47) % Mcintosh % (Auto) (1-9) % Eos % (Auto) (0-6) % Baso % (Auto) (0-2) % Absolute Neuts (auto) (1.5-7.7) 10^3/ul Absolute Lymphs (auto) (1.0-4.8) 10^3/ul Absolute Monos (auto) (0-0.8) 10^3/ul Absolute Eos (auto) (0-0.6) 10^3/ul Absolute Basos (auto) (0-0.2) 10^3/ul Absolute Nucleated RBC 10^3/ul Nucleated RBC % Sodium (133-145) mmol/L Potassium (3.5-5.0) mmol/L Chloride (101-111) mmol/L Carbon Dioxide (22-32) mmol/L Anion Gap (2-11) mmol/L BUN (6-24) mg/dL Creatinine (0.67-1.17) mg/dL Est GFR ( Amer) (>60) Est GFR (Non-Af Amer) (>60) BUN/Creatinine Ratio (8-20) Glucose (70-100) mg/dL Lactic Acid (0.5-2.0) mmol/L Calcium (8.6-10.3) mg/dL Total Bilirubin (0.2-1.0) mg/dL AST (13-39) U/L ALT (7-52) U/L Alkaline Phosphatase (34-104) U/L Troponin I (<0.04) ng/mL C-Reactive Protein (< 5.00) mg/L B-Natriuretic Peptide 434 H ( - 100) pg/mL Total Protein (6.4-8.9) g/dL Albumin (3.2-5.2) g/dL Globulin (2-4) g/dL Albumin/Globulin Ratio (1-3) Microbiology and Other Data: Microbiology 04/05/17 02:25 Nasal Screen MRSA (PCR)([facility]) - Final Nasal Mrsa Negative Assess/Plan/Problems-Billing Assessment: 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 No further chest pain since overnight 04/04-04/05. Troponins peaked at 6.08. Appreciate cardiology consult, possible cath today, recommending NSAIDs and colchicine. Continue ASA, metoprolol. (2) Fever Current Visit: Yes Comment: rash. Continue to have low grade fevers, CRP elevated at 199. 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 CXR and CT scan does show pulmonary infiltrate. Appreciate ID assistance, AFB smear negative x 2 awaiting final sputum sample to r/o. HIV, HBV, CMV, BERNARDO, ANCA, Lyme serologies pending. (3) DVT prophylaxis Current Visit: Yes Comment: Heparin
[2017-04-06] MEDS ORDERED: nitroGLYCERIN DRIP* 250 ML ONE (14:28)
[2017-04-06] MEDS ORDERED: fentaNYL* 50 MCG/ML 2 ML VIAL (100 MCG VIAL) ONE (14:28)
[2017-04-06] MEDS ORDERED: Heparin 2 UNITS/ML IVPREMIX* 2,000 ML IV ONE (14:28)
[2017-04-06] MEDS ORDERED: Midazolam* 1 MG/ML 5 ML VIAL (5 MG) ONE (14:28)
[2017-04-06] MEDS ORDERED: VERAPAMIL 2.5 MG/ML 4 ML VIAL ONE (14:28)
[2017-04-06] MEDS ORDERED: Heparin(*) 1000 UNIT/ML 10 ML VIAL CATH LAB IV ONE (14:28)
[2017-04-06] MEDS ORDERED: Lidocaine 1% INJ* 10 MG/ML 30 ML SDV ONE (14:29)
[2017-04-06] MEDS ORDERED: Iohexol 350 (CONTRAST) 200 ML MDV IV ONE (14:29)
[2017-04-06] MEDS ORDERED: NS 0.9% 1000 ML* 1,000 ML IV SCH ×2 (14:45→16:15)
[2017-04-06] MEDS ORDERED: NS 0.9% 1000 ML* 1,000 ML IV PRN (16:13)
--- NOTE | 2017-04-06 17:11 | CONS ---
CARDIOLOGY CONSULTATION: DATE OF CONSULT: 04/05/2017. REASON FOR CONSULTATION: Abnormal ECG, elevated troponins, and chest pain. 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 He speaks [place] and my entire history was obtained through interpreters including a medical student who speaks [place] as well as the interpretation system. According to the patient, he has been in good health during his life until last week when he developed an itchy rash. He took Benadryl for this and then 2 days prior to my consultation, he developed chest discomfort. He denies any positional component to it. 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 He responded to nonsteroidals, he was given ibuprofen once, and then he woke up in the middle of the night with additional chest pain and diaphoresis, many hours after his nonsteroidal was given. He denied any positional component to this as well and it did not improve sitting up. He was given Toradol and with complete relief and has not reoccurred again. He did develop a fever and some chills. He is not aware of any tick or bug bites. PAST MEDICAL HISTORY: The patient has no past medical history. MEDICATIONS: He was on no outpatient medications. Inpatient medications at the time I saw him, have included, 1. Tylenol p.r.n. 2. Lopressor 12.5 mg q.12 hours had been started. No consistent nonsteroidals had been given prior to his second episode of chest pain that awoke him from sleep. ALLERGIES: He has no known drug allergies. SOCIAL HISTORY: The patient was born in [place]. 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 FAMILY HISTORY: As far as he knows there is no family history of atherosclerotic heart disease. REVIEW OF SYSTEMS: See history of present illness, all other review of systems unremarkable. The patient denies ever using cocaine in his full life and no recreational drug use of any sort around the time of this event. PHYSICAL EXAMINATION: On exam, the patient is 5 foot 3 inches, weighs 159 pounds with a BMI of 28. The patient vitals, temperature on admission was 99.7 , blood pressure 105/68, pulse of 80 and regular, oxygen saturation 100% on room air. General Appearance: Fit young man. Muscular in no acute distress. HEENT: Pupils are equal and round. Mucous membranes are moist. Neck: Without appreciable increase in JVP. Good carotid pulses audible. Psychological: Pleasant and cooperative. Neurologic: Awake, alert, and oriented to person, place, and time. Cranial nerves II through XII intact. Grossly normal sensory, motor function in the upper and lower extremities. Gait not checked but normal on exam. Skin: I did appreciate rashes or cyanosis. Lungs: Clear with good effort. No wheezes, rales, or rhonchi. Coronary: S1 and S2. Regular. No rub. No murmurs. No extrasystoles. Abdomen: Flat, active bowel sounds, soft, nontender. No hepatosplenomegaly or masses. Extremities: Lower extremities warm and well perfused with good distal pulses. DIAGNOSTIC STUDIES/LAB DATA: The patient's labs on admission white count of 11.8, hemoglobin 14.4, platelet 275 with increased monos and neutrophils. On the day of the consult, white count 8.9, hemoglobin 13.7. PTT 37.1. Troponin # 1 was 0.21, troponin #2 was 0.26, troponin #3 was 0.64, troponin #4 was 6.08 ( at 2300). CRP of 200. BNP 434. Sodium 136, potassium 4.0, chloride 102, bicarb 25, BUN 14, creatinine 0.73, glucose 99. ALT 46. Admission ECG on 04/04/17 at 11:40 in the morning had shown normal sinus rhythm with diffuse ST elevation across the precordial and lateral leads and nonspecific ST changes in the inferior leads. ECG #2 at 1307, showed progression in the ST elevation, now included lead 2. ECG #3 done 04/05/17 just after midnight when awakening from chest pain showed resolution of the ST elevation and was tachycardic at 190 per minute. The patient's echocardiogram from 04/04/2017 showed an ejection fraction of 45% to 50% with trace aortic, mitral, and tricuspid insufficiency (lower than expected for his age). Chest CT from 04/04/17 at 17:22 noncontrast, shows left-sided infiltrates and mediastinal lymphadenopathy, possible splenomegaly and CTA of the chest, abdomen , and pelvis done at midnight showed no aortic abnormalities. Multifocal lung consolidation, mediastinal lymphadenopathy noted, borderline hepatomegaly. 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 The normalization of the ST changes may represent normal progression and EKGs with myopericarditis that also raises the possibility of reversible diffuse ischemia. I feel the most likely overall diagnosis is myopericarditis in relationship to some infectious etiology, possibly viral, and therefore recommend around-the- clock nonsteroidal for at least a week then they could be changed to p.r.n. recurrent chest pain and I recommend initiation of colchicine 0.6 mg a day with tentative plans to leave this on for a month as a bridge for the nonsteroidal. Because his ejection fraction is lower than what would be expected for his age group, low normal to mildly depressed, I would avoid strenuous activity until his symptomatology is resolved and/or ejection fraction is recovered. I agree with the low-dose beta-blockers, there are instances with myocarditis where ventricular ectopy can be induced by the inflammatory process of the myocardium. Because of the rapid reversing/normalization of the ST segment site, discussed the case with spring tester in terms of differentials. There could be a differential of some sort of arteritis, vascular spasm, or less likely underlying atherosclerotic heart disease and he could have anomalous coronary artery system. Discussions were therefore ensued about cardiac catheterization to rule out any of these etiologies as contributing to his presentation. Further recommendations will be made pending the response to his medical management and further studies. [id number]/[facility] #: [id number] YONATAN
[2017-04-06] MEDS: Ibuprofen TAB* 600 MG PO SCH (17:18)
[2017-04-06] MEDS: Colchicine* 0.6 MG TAB PO SCH (20:41)
[2017-04-07] MEDS: Ibuprofen TAB* 600 MG PO SCH ×2 (00:28→08:17)
[2017-04-07 06:11] LABS: Hematocrit 41 % (42-52); Mean Corpuscular HGB Conc 34 g/dl (31-36); Mean Corpuscular Hemoglobin 29 pg (27-31); Mean Corpuscular Volume 87 fL (80-94); Mean Platelet Volume 9 um3 (7.4-10.4); Red Blood Count 4.77 10^6/ul (4.0-5.4); Red Cell Distribution Width 13 % (10.5-15); White Blood Count 6.5 10^3/ul (3.5-10.8)
[2017-04-07 06:26] LABS: EGFR African American 212.6 (>60); EGFR Non-African American 165.3 (>60)
--- NOTE | 2017-04-07 07:00 | CATH ---
CC: Dr. Silva CATH REPORT: DATE OF CATH: 04/06/17 CHIEF NURSING EXECUTIVE: Dr. Silva. PROCEDURES: Right radial artery access, bilateral selective coronary cineangiography, left heart ca theterization, left ventriculography. HISTORY: A 21-year-old male with suspected myopericarditis; however, atypical due to rapid resoluti on of ST elevation. He was referred for catheterization to rule out ACS, spontaneous coronary arter y dissection. Troponin increased to 6. Informed consent was obtained via an shampoo technician. PROCEDURE ACCESS: Right radial artery sheath, 6-F Slender. MEDICATIONS: 1. Subcu lidocaine. 2. IV Versed. 3. IV fentanyl. 4. Heparin 3000 units. 5. Verapamil 3 mg. 6. Nitroglycerin 300 mcg IA. DIAGNOSTIC CATHETERS: 6-FR4, 6F-IL 3.5. 5 pigtail. HEMODYNAMICS: Initial BP 117/70, LV 93/4-8, no aortic valve gradient on pullback. ANGIOGRAPHY: RCA: The RCA is large, dominant, smooth with a large PDA and two small posterolaterals . It has no atherosclerosis or stenosis. Left main: The left main is large, smooth without stenosis. LAD: The LAD is large, extends past the apex, it supplies a moderate and then a small diagonal, sup plies the inferoapical segment. The LAD has no stenosis. Circumflex: The circumflex is large, dominant, with a large ramus branch, a large first marginal, e nds with a [id number] posterolateral. The circumflex has no stenosis. LV gram: There is ectopy with injection, there is localized apical hypokinesis, visually estimated LVEF 45% to 50% with ectopy. CONCLUSION: 1. No obstructive coronary disease. 2. Low normal LVEF with localized apical hypokinesis. 3. Normal left-sided hemodynamics. 4. Successful right radial artery access. [id number]/[facility] #: [id number]
[2017-04-07 07:55] VITALS: BP 111/59
[2017-04-07] MEDS: Aspirin Low Dose CHEW TAB* 81 MG PO SCH (08:17)
[2017-04-07] MEDS: Colchicine* 0.6 MG TAB PO SCH (08:17)
[2017-04-07] MEDS: Metoprolol Tartrate TAB* 25 MG PO SCH (08:18)
[2017-04-07] MEDS: Acetaminophen TAB* 325 MG PO PRN (09:20)
[2017-04-07] MEDS ORDERED: Docusate CAP* 100 MG PO PRN (10:11)
--- NOTE | 2017-04-07 10:46 | DCNOTE ---
Patient seen this morning, used cyraphone. Patient has had no further chest pain. Says he is feeling well. Discussed cath results and continued outpatient therapy for this myopericarditis. Answered all questions that he and his cousin had. On exam, young, M, laying in bed in NAD, lungs CTA B/L, no w/r/r/, RRR , s1 and s2 present, no m/g/r, no LE edema Will discharge home with ATC ibuprofen and colchicine. Will need to make appt with new PCP and with Cardiology.
[2017-04-07] MEDS ORDERED: Senna TAB PO SCH (11:00)
--- NOTE | 2017-04-08 05:47 | DS ---
CC: Dr. Hyman DISCHARGE SUMMARY: DATE OF ADMISSION: 04/04/17 DATE OF DISCHARGE: 04/07/17 PRIMARY CARE PHYSICIAN: Dr. Hyman. PRINCIPAL DISCHARGE DIAGNOSIS: Myopericarditis. DISCHARGE MEDICATION REGIMEN: 1. Metoprolol tartrate 12.5 mg by mouth 2 times daily. 2. Ibuprofen 600 mg by mouth every 8 hours. 3. Colchicine 0.6 mg by mouth daily. 4. Tylenol 650 mg by mouth every 6 hours as needed for pain or fever. STUDIES DONE DURING HOSPITALIZATION: Chest x-ray, impression: Stable left lower lung consolidation. Recommend followup until resolution to exclude underlying pulmonary parenchymal pathology. Transthoracic echocardiogram, conclusion: Left ventricular chamber size is normal. Left ventricular systolic function is at the lower limits of normal. Estimated ejection fraction is 50%. The right ventricular chamber size and systolic function are within normal limits. There is no significant pericardial effusion. All valves appear structurally normal with normal function. There is trace aortic regurgitation, trace mitral regurgitation, trace tricuspid regurgitation. No prior echo to compare. CT of the chest without contrast, impression: Noncontrast imaging demonstrates left-sided infiltrates with mediastinal lymphadenopathy, possible splenomegaly, consider both inflammatory and neoplastic etiologies. CTA of the chest, abdomen and pelvis with contrast, impression: No aortic intimal flap or aneurysmal dilatation. Multifocal left lung consolidation with mediastinal and hilar lymphadenopathy, borderline hepatosplenomegaly. Cardiac catheterization, conclusion: No obstructive disease. Low normal LVEF with localized apical hypokinesis. Normal left-sided hemodynamics, successful right radial artery access. CONSULTS DURING HOSPITALIZATION: Dr. Darek Ni, Infectious Disease; Dr. Rachel Silva, Cardiology; Dr. Jillian Buckner, Interventional Cardiology. HISTORY OF PRESENT ILLNESS AND HOSPITAL SUMMARY: Please see the full history and physical by Dr. Diana Garay. For full details briefly, Mr. Linus Bhat is a 21-year-old Frisian-speaking man who presented to the hospital with fever, chills, rash, and chest pain. The patient was noted to have some ST changes and slight troponin elevation on admission with subsequent increase and peaked at 6.08. It was felt that the patient likely had myopericarditis, which initially was felt to be due to viral etiology. 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 ID was consulted and recommended TB rule out with AFB smears x3, which was done and remained negative. The patient also underwent workup for possible vasculitis. He had an BERNARDO and an ANCA screen that were both negative. Normal LDH. Lyme disease serology was negative. He had a CMV IgG that was positive, but IgM was negative. Hepatitis and HIV workup were both negative. It was felt that this was likely due to a viral etiology. The patient should have followup chest imaging to follow L lung infiltrate. It was recommended he remain on a beta-july by Cardiology in addition to colchicine and NSAIDs. He will need to follow up with Cardiology and was given the office number for Dr. Hyman to schedule an inpatient appointment. TIME SPENT: Total time spent on this discharge, 45 minutes. This is a summary of the hospitalization. Please see the full medical record for further details. [id number]/[facility] #: [id number] MTDD
[2017-04-08] MEDS ORDERED: Colchicine* 0.6 MG TAB PO SCH (09:00)
== END 2017-04-07 13:28 | disposition home or self-care (01) | DRG 287 ==
LOC: ED 12:42 → MEDTELE 14:12 → ED 14:40 → ICU 04-05 02:23 → MEDTELE 04-06 20:15
PROVIDERS: ADMIT Hospitalist; ATTEND Hospitalist
PROC: B211YZZ Fluoroscopy of Multiple Coronary Arteries using Other Contrast (ICD-10-PCS; 2017-04-06)
PROC: B215YZZ Fluoroscopy of Left Heart using Other Contrast (ICD-10-PCS; 2017-04-06)
PROC: 4A023N7 Measurement of Cardiac Sampling and Pressure, Left Heart, Percutaneous Approach (ICD-10-PCS; principal; 2017-04-06 09:00)
DX: I30.1 Infective pericarditis (principal)
CPT/HCPCS: 36415; 71250; 71275; 74174; 80053; 80307; 82565; 83516; 83605; 83615; 83880; 84145; 84484; 84520; 85025; 85730; 86038; 86140; 86618; 86644; 86645; 86703; 86803; 87040; 87116; 87206; 87340; 87641; 93005; 93306; 93458; 94640; A9270-GY; C1887; J1644; J1650; J1885; J2001; J2250; J2270; J3010; Q9967